=== PATIENT | male | born 1945 | race Caucasian/White ===

== ENCOUNTER 2016-11-07 13:54 | Inpatient (IN) | payer OTHER ==
[~2016-11-07] VITALS: Ht 175.3 cm; Wt 75.9 kg
[2016-11-07] MEDS ORDERED: SOD CHLORIDE 0.9% 500 ML IV STA (22:04)
[2016-11-07] MEDS ORDERED: morphine 2 MG INJ IV STA (22:04)
[2016-11-07] MEDS ORDERED: ONDANSETRON 4 MG INJ IV STA (22:04)
[2016-11-07] MEDS ORDERED: LANT3I SC (22:25)
[2016-11-07] MEDS ORDERED: NOVMIX SC (22:26)
[2016-11-07] MEDS ORDERED: ENAL20TA PO (22:27)
[2016-11-07] MEDS ORDERED: MONT10TA24 PO (22:27)
[2016-11-07] MEDS ORDERED: HYD25 PO (22:28)
[2016-11-07] MEDS ORDERED: ASPI-664 PO (22:28)
[2016-11-07] MEDS ORDERED: METF1000 PO (22:29)
[2016-11-07] MEDS ORDERED: SIMV20TA PO (22:29)
[2016-11-07 22:36] LABS: ADD SCAN DIFF NO
[2016-11-07 22:37] LABS: BASOPHIL # 0.1 10^3/ul (0.0-0.1); BASOPHILS % 0.4 % (0.0-2.0); EOSINOPHILS # 0.1 10^3/ul (0.0-0.5); EOSINOPHILS % 0.7 % (0.0-7.0); HEMATOCRIT 50.1 % (42.0-52.0); HEMOGLOBIN 17.2 g/dl (14.0-18.0); LYMPHOCYTES # 2.2 10^3/ul (0.8-2.9); LYMPHOCYTES % 17.1 % (15.0-51.0); MEAN CORPUSCULAR HEMOGLOBIN 29.7 pg (29.0-33.0); MEAN CORPUSCULAR HGB CONC 34.3 g/dl (32.0-37.0); MEAN CORPUSCULAR VOLUME 86.5 fl (82.0-101.0); MEAN PLATELET VOLUME 10.4 fl (7.4-10.4); MONOCYTE # 0.8 10^3/ul (0.3-0.9); MONOCYTES % 6.2 % (0.0-11.0); NEUTROPHIL # 9.6 10^3/ul (1.6-7.5); NEUTROPHILS % 75.2 % (39.0-77.0); PLATELET COUNT 262 10^3/UL (140-415); RED BLOOD COUNT 5.79 10^6/ul (4.70-6.10); RED CELL DISTRIBUTION WIDTH 12.9 % (11.5-14.5); WHITE BLOOD COUNT 12.8 10^3/ul (4.8-10.8)
[2016-11-07 22:44] LABS: ADD UMIC YES; URINE BILIRUBIN (Dip) 1+ (NEGATIVE); URINE BLOOD (Dip) TRACE (NEGATIVE); URINE COLOR YELLOW (YELLOW); URINE GLUCOSE (Dip) >=1000 % (NEGATIVE); URINE KETONES (Dip) 40 (NEGATIVE); URINE LEUKOCYTE ESTERASE (Dip) NEGATIVE (NEGATIVE); URINE NITRITE (Dip) NEGATIVE (NEGATIVE); URINE TOTAL PROTEIN (Dip) TRACE (NEGATIVE); URINE UROBILINOGEN (Dip) 1.0 E.U./dL (0.1-1.0)
[2016-11-07 22:47] LABS: CHLORIDE 95 mmol/L (97-110); SODIUM 139 mmol/L (135-144)
[2016-11-07 22:48] LABS: POTASSIUM 3.3 mmol/L (3.5-5.1)
[2016-11-07 22:50] LABS: ALANINE AMINOTRANSFERASE 156 IU/L (13-69); ALBUMIN/GLOBULIN RATIO 1.08; ALKALINE PHOSPHATASE 258 IU/L (42-121); ANION GAP 20 (8-16); ASPARTATE AMINO TRANSFERASE 63 IU/L (15-46); BILIRUBIN,INDIRECT 0.9 mg/dl (0-1.1); BILIRUBIN,TOTAL 0.9 mg/dl (0.2-1.3); BLOOD UREA NITROGEN 29 mg/dl (7-20); CARBON DIOXIDE 27 mmol/L (21-31); CREATININE 1.15 mg/dl (0.61-1.24); GLUCOSE 242 mg/dl (70-220); TOTAL PROTEIN 7.7 g/dl (6.1-8.1)
[2016-11-07 22:51] LABS: CALCIUM 9.4 mg/dl (8.4-10.2)
--- NOTE | 2016-11-07 22:52 | RADRPT ---
PROCEDURE: XR Chest. CLINICAL INDICATION: Abdominal pain. TECHNIQUE: Single frontal view of the chest was obtained COMPARISON: None FINDINGS: Cardiomegaly. Mild discoid atelectasis at the right lung base. Mild atelectasis versus airspace di sease at the left lung base. Likely changes of centrolobular emphysema. There is no pleural effusion or pneumothorax. IMPRESSION: 1. Mild discoid atelectasis at the right lung base. 2. Mild atelectasis versus airspace disease at the left lung base. RPTAT: [facility] Physician Sin Date Time Electronically viewed and signed by Physician Sin on 11/07/2016 22:52 RS/
[2016-11-07 23:04] LABS: TROPONIN-I < 0.012 ng/ml (0.00-0.12)
[2016-11-07 23:07] LABS: ICTOTEST NEGATIVE (NEGATIVE)
[2016-11-07 23:08] LABS: BACTERIA,URINE RARE; MUCUS,URINE FEW; SQUAMOUS EPITHELIAL CELL,UR RARE; URINE RBCS 0-2 /HPF (0)
--- NOTE | 2016-11-07 23:25 | RADRPT ---
PROCEDURE: CT ABDOMEN/PELVIS WITHOUT CONTRAST CLINICAL INDICATION: 71-year-old male with abdominal pain. TECHNIQUE: The study was performed utilizing a [employer]ed VCT 64-slice CT scanner. Direct axia l sections were obtained through the abdomen and pelvis without the use of intravenous contrast mate rial. Sagittal and coronal reformations were obtained. One or more of the following dose reduction t echniques were utilized: automated exposure control, adjustment of the mA and/or kV according to pat ient's size or use of iterative reconstruction technique. The images were reviewed on a PACS workst [employer]. CTD/vol = 12.7 mGy; Total Exam DLP = 693.8 mGy-cm. COMPARISON: None. FINDINGS: There is minimal pericardial effusion. There is mild bibasilar subsegmental atelectasis and/or scar ring. There is no evidence for significant pleural effusion. The liver has a normal size and contou r. There is diffuse decreased density throughout the liver consistent with fatty infiltration witho ut focal areas of abnormal density. No intrahepatic nor extrahepatic biliary ductal dilatation is se en. The gallbladder is not visualized consistent with prior cholecystectomy. The pancreatic head and body appears to be edematous with multiple small calcifications within it as well as mild peripancr eatic infiltration. This is suggestive of an acute pancreatitis superimposed on chronic pancreatitis . The distal pancreatic duct appears to be diffusely dilated measuring up to 7 mm within the distal body and tail region. The spleen is identified and has a normal size without abnormal density. The adrenal glands are unremarkable. There is a punctate nonobstructing right lower pole renal kunal calculus. There are punctate nonobstructing left upper and lower pole renal calculi. Mild prominen ce of the renal pelves are present bilaterally without evidence for ji obstructive uropathy. Ther e is a left upper pole renal cyst measuring approximately 1.5 x 1.5 x 1.5 cm. There is a left mid r enal cortical cyst measuring approximately 1.5 x 1.5 x 2.1 cm. The urinary bladder contains urine. There is flaccidity of the ventral abdominal wall and evidence for prior surgery. There are mildly dilated loops of small bowel with some adherent to the ventral abdominal wall but without evidence f or transition point. This may represent an ileus. The appendix is not visualized however there is no periappendiceal inflammatory changes. The prostate is not enlarged however there are multiple sm all calcifications within it. There is no significant pelvic free fluid. The aortoiliac vessels are mildly calcified but without aneurysmal dilatation. Degenerative changes are present within the spin e. IMPRESSION: 1. Mild bibasilar subsegmental atelectasis and/or scarring. 2. Diffuse fatty infiltration of the liver. 3. Status post cholecystectomy. 4. Diffusely edematous heterogeneous pancreatic head and body with diffuse calcification and mild p eripancreatic infiltration suggestive of acute pancreatitis superimposed on chronic pancreatitis. N oted is dilated distal pancreatic duct measuring up to 7 mm. 5. Punctate nonobstructing bilateral renal calculi. 6. Left renal cysts. 7. Prior abdominal surgery with flaccidity of the ventral abdominal wall. 8. Mildly dilated loops of small bowel without evidence for gross bowel obstruction. This may repr esent an ileus. 9. Vascular calcifications. 10. Degenerative changes within the spine. .Romaine Lauren MD, MD Date Time Electronically viewed and signed by .Romaine Lauren MD, on 11/07/2016 23:25 .M/
--- NOTE | 2016-11-08 01:06 | ERA ---
ER Documentation Chief Complaint Date/Time DATE: 11/08/16 TIME: 01:05 Chief Complaint abd pain with vomiting x 5 days HPI This is a 71-year-old male with abdominal pain and vomiting for the past 5 days. Vomiting been nonbilious nonbloody. 4-5 episodes per day. Abdominal pain is diffuse in location and seems to localize in the epigastric region. No fevers no chills. No other current complaints. No sick contacts. ROS All systems reviewed and are negative except as per history of present illness. Medications Home Meds Reported Medications Metformin Hcl* (Metformin Hcl*) 1,000 Mg Tablet, 1000 MG PO WITH BREAKFAST DINNE , #60 TAB 11/07/16 Simvastatin* (Zocor*) 20 Mg Tablet, 20 MG PO DAILY, #30 TAB 11/07/16 Aspirin* (Aspirin* EC) 81 Mg Tablet.dr, 81 MG PO DAILY, TAB 11/07/16 Hydrochlorothiazide* (Hydrochlorothiazide*) 25 Mg Tab, 25 MG PO DAILY, #30 TAB 11/07/16 Enalapril Maleate* (Enalapril Maleate*) 20 Mg Tablet, 20 MG PO DAILY, TAB 11/07/16 Montelukast Sodium* (Montelukast Sodium*) 10 Mg Tablet, 10 MG PO DAILY, #30 TAB 11/07/16 Insulin Aspart (Novolog Mix (70/30)) 100 Units/Ml Soln, 30 UNITS SC WITH BREAKFAST DINNE, EA 11/07/16 Insulin Glargine* (Lantus*) 100 Unit/Ml Soln, 35 UNIT SC QHS, #1 VIAL 11/07/16 Allergies Allergies: Coded Allergies: No Known Allergy (Unverified , 11/07/16) PMhx/Soc Hx Alcohol Use: Yes Hx Substance Use: No Hx Tobacco Use: No Smoking Status: Never smoker Physical Exam Vitals Vital Signs Date Time Temp Pulse Resp B/P Pulse Ox O2 Delivery O2 Flow Rate FiO2 11/07/16 14:00 99.5 105 18 178/89 97 Physical Exam Const: [] Head: Atraumatic Eyes: Normal Conjunctiva ENT: Normal External Ears, Nose and Mouth. Neck: Full range of motion..~ No meningismus. Resp: Clear to auscultation bilaterally Cardio: Regular rate and rhythm, no murmurs Abd: Soft, non tender, non distended. Normal bowel sounds Skin: No petechiae or rashes Back: No midline or flank tenderness Ext: No cyanosis, or edema Neur: Awake and alert Psych: Normal Mood and Affect Result Diagram: 11/07/16222911/07/162229 Results 24 hrs Laboratory Tests Test 11/07/16 22:25 11/07/16 22:30 Urine Color YELLOW Urine Clarity CLEAR Urine pH 6.0 Urine Specific Java 1.020 Urine Ketones 40 Urine Nitrite NEGATIVE Urine Bilirubin 1+ Urine Ictotest NEGATIVE Urine Urobilinogen 1.0 E.U./dL Urine Leukocyte Esterase NEGATIVE Urine Microscopic RBC 0-2/HPF Urine Microscopic WBC NONE SEEN/HPF Urine Squamous Epithelial Cells RARE Urine Bacteria RARE Urine Mucus FEW Urine Hemoglobin TRACE Urine Glucose >=1000% Urine Total Protein TRACE White Blood Count 12.810^3/ul Red Blood Count 5.7910^6/ul Hemoglobin 17.2g/dl Hematocrit 50.1% Mean Corpuscular Volume 86.5fl Mean Corpuscular Hemoglobin 29.7pg Mean Corpuscular Hemoglobin Concent 34.3g/dl Red Cell Distribution Width 12.9% Platelet Count 23429^3/UL Mean Platelet Volume 10.4fl Neutrophils % 75.2% Lymphocytes % 17.1% Monocytes % 6.2% Eosinophils % 0.7% Basophils % 0.4% Nucleated Red Blood Cells % 0.0/100WBC Neutrophils # 9.610^3/ul Lymphocytes # 2.210^3/ul Monocytes # 0.810^3/ul Eosinophils # 0.110^3/ul Basophils # 0.110^3/ul Nucleated Red Blood Cells # 0.010^3/ul Sodium Level 139mmol/L Potassium Level 3.3mmol/L Chloride Level 95mmol/L Carbon Dioxide Level 27mmol/L Anion Gap 20 Blood Urea Nitrogen 29mg/dl Creatinine 1.15mg/dl Glucose Level 242mg/dl Calcium Level 9.4mg/dl Total Bilirubin 0.9mg/dl Direct Bilirubin 0.00mg/dl Indirect Bilirubin 0.9mg/dl Aspartate Amino Transf (AST/SGOT) 63IU/L Alanine Aminotransferase (ALT/SGPT) 156IU/L Alkaline Phosphatase 258IU/L Troponin I < 0.012ng/ml Total Protein 7.7g/dl Albumin 4.0g/dl Globulin 3.70g/dl Albumin/Globulin Ratio 1.08 Lipase 73U/L Current Medications Medications (Trade) Dose Ordered Sig/Jyoti Route PRN Reason Start Time Stop Time Status Last Admin Dose Admin Sodium Chloride (NS) 500 ml @ 500 mls/hr Q1H STAT IV 11/07/16 22:04 11/07/16 23:03 DC 11/07/16 22:23 Morphine Sulfate (morphine) 2 mg ONCE STAT IV 11/07/16 22:04 11/07/16 22:06 DC 11/07/16 22:23 Ondansetron HCl (Zofran Inj) 4 mg ONCE STAT IV 11/07/16 22:04 11/07/16 22:06 DC 11/07/16 22:23 Procedures/MDM EKG: Rate/Rhythm: Normal Sinus Rhythm QRS, ST, T-waves: No changes consistent w/ acute ischemia Impression: No evidence of ischemia or arrhythmia Chest X-ray 1V Interpreted by me: Soft Tissue: No acute abnormalities Bones: No acute abnormalities Mediastinum/Cardiac Silhouette/Lungs: [No acute abnormalities] Medical decision-makin-year-old male with vomiting. CT shows acute on chronic pancreatitis. Patient will be admitted to Dr. Tello. Fluid hydration started here in the ER. Departure Diagnosis: Primary Impression: Abdominal pain Qualified Code: R10.84 - Generalized abdominal pain Additional Impression: Pancreatitis Qualified Code: K85.90 - Acute pancreatitis, unspecified complication status, unspecified pancreatitis type Condition: Serious STEFANI VILLARREAL Nov 08, 2016 01:06
[2016-11-08 03:35] VITALS: Ht 175.3 cm; Wt 75.9 kg
[2016-11-08 03:59] VITALS: BP 157/88; PULSE 18; PULSE 82; RESP 18
[2016-11-08] MEDS ORDERED: ONDANSETRON 4 MG INJ IV PRN (06:00)
[2016-11-08] MEDS ORDERED: ACETAMINOPHEN 325 MG TAB PO PRN (06:00)
[2016-11-08] MEDS: DEXTROSE 5%-0.9% NACL 1,000 ML IV SCH ×2 (06:23→17:45)
[2016-11-08] MEDS: PANTOPRAZOLE 40 MG INJ IV SCH (06:23)
[2016-11-08 07:27] VITALS: BP 136/74; RESP 20
[2016-11-08] MEDS ORDERED: GLUCOSE GEL 15 GRAM TUBE PO PRN ×2 (09:00)
[2016-11-08] MEDS ORDERED: GLUCAGON 1 MG INJ IM PRN (09:00)
[2016-11-08] MEDS ORDERED: DEXTROSE 50% 50 ML SYRINGE IV PRN ×2 (09:00)
[2016-11-08] MEDS ORDERED: GLUCOSE GEL 15 GRAM TUBE BUCCAL PRN (09:00)
[2016-11-08] MEDS: ENALAPRIL 20 MG TAB PO SCH (10:40)
[2016-11-08] MEDS: MONTELUKAST 10 MG TAB PO SCH (10:40)
[2016-11-08] MEDS: INSULIN ASPART [NOVOLOG] 3 ML PEN SC SCH ×3 (11:40→21:03)
[2016-11-08] MEDS: ACCU-CHEK XX SCH ×2 (12:03→17:34)
[2016-11-08] MEDS ORDERED: POTASSIUM CHLORIDE 250 ML IVPB ONE (18:30)
[2016-11-08 19:56] VITALS: BP 156/88; RESP 18
[2016-11-08] MEDS: INSULIN GLARGINE [LANtus] 3 ML PEN SC SCH (20:58)
--- NOTE | 2016-11-08 21:04 | QN ---
Documentation Comment [id number] MARIA EUGENIA LEONARD MD Nov 08, 2016 21:04
--- NOTE | 2016-11-08 21:09 | CONS ---
DATE OF ADMISSION: 11/08/2016 DATE OF CONSULTATION: TYPE OF CONSULTATION: Gastroenterology. REFERRING PHYSICIAN: Dr. Craig Leonard. Dear Dr. Leonard: HISTORY OF PRESENT ILLNESS: Thank you for asking me to evaluate the patient who is a pleasant 71-ye ar-old gentleman with no history of alcoholism or lipid abnormality, comes to the hospital complaini ng of abdominal pain confined to the epigastric and umbilical area. Nonradiating in nature, associa radha nausea and vomiting of 5 days duration. 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 I do not have any records. This was done a few y ears ago. No GI bleeding, no fever, no chills. The pain has improved dramatically now. The GI con sult was called in for pancreatitis, though the lipase was normal. The patient's CAT scan revealed acute and chronic pancreatitis with calcification and dilatation of the upstream pancreatic duct by 7 mm. No dilatation of the bile duct was seen. PAST SURGICAL HISTORY: The patient is status post cholecystectomy. REVIEW OF SYSTEMS: Otherwise negative. MEDICATIONS: All reviewed. He is on: 1. Metformin. 2. Simvastatin. 3. Hydrochlorothiazide. 4. Enalapril. 5. Insulin. ALLERGIES: NONE. PAST MEDICAL HISTORY: History of alcohol abuse: As per the ER records, it says yes. per the kenyatta wong, no. History of substance abuse: No. Tobacco: No smoking. PHYSICAL EXAMINATION: GENERAL: Well-built, nourished, not in distress. VITAL SIGNS: Stable. HEENT: Unremarkable. NECK: Supple. No thyromegaly, no lymphadenopathy. CARDIOVASCULAR: No murmur, gallop, or click. LUNGS: Clear. ABDOMEN: Soft. Midline surgical scar seen. There is also small ventral hernia, nontender. EXTREMITIES: No edema. CENTRAL NERVOUS SYSTEM: Grossly within normal limits. LABORATORY DATA: Lipase was 73. LFTs all abnormal. Alkaline phosphatase 250, SGOT 16, SGPT of 56. Total bilirubin is within normal limits. Creatinine is 1.15. Hemoglobin A1c is high, 9.8. Chest x-ray was negative except for a mild atelectasis. IMPRESSION: 1. Pancreatitis. 2. Dilated pancreatic duct. 3. Abnormal liver function tests. 4. Fatty liver. 5. Hypertension. 6. Diabetes mellitus. PLAN: 1. At this point, is to keep the patient n.p.o. until the pain subsides. 2. Narcotics for pain management. 3. IV hydration with ringer Lactated 125 to 150 mL per hour. 4. We will get MRCP done to evaluate the pancreatic duct. 5. I would stop hydrochlorothiazide for the time being, which is also known to produce pancreatitis . 6. I will follow the patient closely. Dictated By: CHRIS HERNANDEZ/AMINA Conf#: [id number] DID#: [id number] CC: CHRIS HARDY MD; CRAIG LEONARD MD;*EndCC*
[2016-11-08] MEDS: morphine 4 MG/ML VIAL IV PRN (21:10)
--- NOTE | 2016-11-08 21:51 | HP ---
DATE OF ADMISSION: 11/08/2016 HISTORY OF PRESENT ILLNESS: Joseph Santa is a 71-year-old male who was admitted with abdominal pain with history of pancreatitis. The patient has history of hypertension, diabetes mellitus, history o f necrotizing pancreatitis in the past and surgery, per patient, presented with abdominal pain. The patient's vital signs: Blood pressure 157/88. The patient's laboratory data done shows sodium 130 , potassium 3.3. The patient's glucose 248. The patient's AST 63, ALT 156, alkaline phosphatase 25 8. Lipase 73. PAST MEDICAL HISTORY: Positive for hypertension, diabetes mellitus, pancreatitis, dyslipidemia. ALLERGY HISTORY: NEGATIVE. FAMILY HISTORY: Negative. SOCIAL HISTORY: Negative. MEDICATIONS: 1. Aspirin. 2. Enalapril. 3. Hydrochlorothiazide. 4. Insulin Lantus. 5. Metformin. 6. Singulair. 7. Simvastatin. REVIEW OF SYSTEMS: HEENT: Unremarkable. RESPIRATORY: Unremarkable. CARDIOVASCULAR: Unremarkable. ABDOMEN: No nausea, vomiting. No hematemesis or melena. EXTREMITIES: Unremarkable. GENITOURINARY: Unremarkable. MUSCULOSKELETAL: Unremarkable. PHYSICAL EXAMINATION: GENERAL: The patient is awake and alert. VITAL SIGNS: Pulse 80, blood pressure 156/80. HEAD: Atraumatic, normocephalic. EYES: Pupils equal, reactive to light. NECK: Supple. No JVD. LUNGS: Clear. CARDIOVASCULAR: S1, S2 normal. ABDOMEN: Soft. There is some tenderness noted in the abdomen. EXTREMITIES: There is no cyanosis, clubbing, or edema. CENTRAL NERVOUS SYSTEM: The patient is awake, alert. No focal deficit. LABORATORY DATA: As mentioned above. IMAGING: The patient had a chest x-ray done, shows mild discoid atelectasis, mild atelectasis versu s airspace disease. The patient has a CT abdomen and pelvis shows mild bibasilar subsegmental atele ctasis or scarring, diffuse fatty infiltration of the liver, status post cholecystectomy, diffuse __ __ pancreatic head and body with diffuse calcification and mild peripancreatic duct infiltration ___ _ due acute pancreatitis superimposed on chronic, the patient has punctate nonobstructing bilateral renal calculi, left renal cyst. ____ abdominal surgery, mildly dilated loops of small bowel without evidence for gross bowel obstruction, vascular calcification, degenerative changes within the spine . IMPRESSION: 1. The patient has pancreatitis. 2. Abnormal liver function tests. 3. Hypokalemia. 4. The patient has diabetes mellitus. 5. Hypertension. 6. Electrolyte imbalance. 7. History of, per patient, cholecystectomy. PLAN: At this point is to keep this patient on clear liquid diet, potassium supplementation, IV flu id, pain medication, sliding scale. Currently, patient is on IV fluid. Potassium chloride. The pa tient is on Accu-Cheks. The patient is on Tylenol. The patient is on enalapril, Glucagon, insulin, morphine, Zofran, Protonix. The patient will have laboratory data checked in the morning. GI cons ultation from Dr. Whaley has been called. Dictated By: MARIA EUGENIA LEONARD MD BS/NTS Conf#: [id number] DID#: [id number]
[2016-11-09] MEDS: ACCU-CHEK XX SCH ×4 (02:25→17:24)
[2016-11-09] MEDS: morphine 4 MG/ML VIAL IV PRN (02:25)
[2016-11-09 05:11] LABS: ADD SCAN DIFF NO
[2016-11-09 05:19] LABS: BASOPHILS % 0.3 % (0.0-2.0); EOSINOPHILS # 0.1 10^3/ul (0.0-0.5); EOSINOPHILS % 1.2 % (0.0-7.0); HEMATOCRIT 44.9 % (42.0-52.0); HEMOGLOBIN 14.7 g/dl (14.0-18.0); LYMPHOCYTES # 1.8 10^3/ul (0.8-2.9); LYMPHOCYTES % 17.7 % (15.0-51.0); MEAN CORPUSCULAR HEMOGLOBIN 28.8 pg (29.0-33.0); MEAN CORPUSCULAR HGB CONC 32.7 g/dl (32.0-37.0); MEAN CORPUSCULAR VOLUME 87.9 fl (82.0-101.0); MEAN PLATELET VOLUME 10.7 fl (7.4-10.4); MONOCYTE # 0.7 10^3/ul (0.3-0.9); MONOCYTES % 6.9 % (0.0-11.0); NEUTROPHIL # 7.3 10^3/ul (1.6-7.5); NEUTROPHILS % 73.6 % (39.0-77.0); PLATELET COUNT 213 10^3/UL (140-415); RED BLOOD COUNT 5.11 10^6/ul (4.70-6.10); WHITE BLOOD COUNT 9.9 10^3/ul (4.8-10.8)
[2016-11-09 05:24] LABS: CREATININE 1.07 mg/dl (0.61-1.24)
[2016-11-09 05:25] LABS: CALCIUM 8.2 mg/dl (8.4-10.2)
[2016-11-09] MEDS: PANTOPRAZOLE 40 MG INJ IV SCH (05:52)
--- NOTE | 2016-11-09 06:13 | RADRPT ---
PROCEDURE: MR Abdomen. CLINICAL INDICATION: Pancreatitis. Evaluate for choledocholithiasis. TECHNIQUE: Multiplanar multi sequence imaging of the abdomen without contrast. Single shock, T2, a nd MRCP sequences. 3-D MIP reconstructions. COMPARISON: CT from 11/07 FINDINGS: MRI Abdomen: The liver is enlarged, measuring 18.[address] suggested hepatic steatosis. No T1-weighted imaging was obtained on today's study. There is mild intrahepatic biliary duct prominence but the common bile duct is normal in caliber, measuring 4 mm. No definite choledocholithiasis. The pancre atic duct is normal in caliber at in the neck, head, and proximal body measuring 3 mm. The pancreati c duct in the mid body of the pancreas is poorly seen and the pancreas is ill-defined in this region . The pancreatic duct in the tail is significantly dilated, measuring up to 6 mm in diameter. Calc ifications were not seen in the tail of the pancreas on recent CT. It is difficult to exclude an un derlying pancreatic mass on this noncontrast study. No definite focal liver lesions are seen. CT showed pancreatic calcifications consistent with chronic pancreatitis. The pancreatic head is sligh tly enlarged and heterogeneous but T2-weighted images show relatively little edema of the pancreas itself. No definite peripancreatic fluid collection. There is edema and slight fluid lateral and p osterior to the duodenum. Bilateral renal pelvocaliectasis and left renal cysts. The adrenals are unremarkable in appearance. Eventration and thinning of the anterior abdominal wall is seen. IMPRESSION: Limited noncontrast study. Mild intrahepatic ductal dilatation but normal caliber common bile duct and no definite choledocholithiasis. No evidence for pancreas divisum. Changes of chronic pancreat itis but cough of the pancreatic duct at the junction of the body and tail with dilated pancreatic d uct in the tail of the pancreas. MRI with and without contrast is suggested to exclude mass. Enlarg ement and heterogeneity of the pancreatic head may all be due to chronic pancreatitis but can be simba luated with pre and post contrast MRI as well. Slight edema and fluid about the duodenum. RPTAT: HLBE Mindy Christiansen, Physician Date Time Electronically viewed and signed by Mindy Christiansen, Physician on 11/09/2016 06:13 LE/
[2016-11-09 07:26] VITALS: BP 136/65; RESP 20
[2016-11-09] MEDS: MONTELUKAST 10 MG TAB PO SCH (08:38)
[2016-11-09] MEDS: ENALAPRIL 20 MG TAB PO SCH (08:38)
[2016-11-09] MEDS: DEXTROSE 5%-0.9% NACL 1,000 ML IV SCH ×2 (08:40→17:48)
[2016-11-09] MEDS: INSULIN ASPART [NOVOLOG] 3 ML PEN SC SCH ×5 (08:44→21:42)
--- NOTE | 2016-11-09 19:14 | CONS ---
Date/Time of Note Date/Time of Note DATE: 11/09/16 TIME: 19:13 Assessment/Plan Assessment/Plan Additional Assessment/Plan IMPRESSION: 1. Pancreatitis. 2. Dilated pancreatic duct. 3. Abnormal liver function tests. 4. Fatty liver. 5. Hypertension. 6. Diabetes mellitus. Plan Good diet and advance to low-fat diet as tolerated by the patient Creon on a regular basis If pain is persistent then patient will need definitely ERCP to rule out stricture between the body and the tail of the pancreas. CA 199 and CEA level Consultation Date/Type/Reason Admit Date/Time Nov 08, 2016 at 00:42 Initial Consult Date 24 HR Interval Summary Free Text/Dictation Pain is minimal, no nausea no vomiting Constitutional: improved, no complaints Exam/Review of Systems Vital Signs Vitals Vital Signs Date Time Temp Pulse Resp B/P Pulse Ox O2 Delivery O2 Flow Rate FiO2 11/09/16 07:26 98.0 77 20 136/65 96 11/08/16 03:59 Room Air Intake and Output 11/08/16 11/08/16 11/09/16 15:00 23:00 07:00 Intake Total 900 ml 250 ml Output Total 650 ml Balance 250 ml 250 ml Exam Constitutional: alert, oriented, well developed Psych: nl mood/affect, no complaints Head: atraumatic, normocephalic Eyes: EOMI, PERRL, nl conjunctiva, nl lids, nl sclera ENMT: nl external ears & nose, nl lips & teeth, nl nasal mucosa & septum Neck: non-tender, supple Respiratory: clear to auscultation, normal air movement Cardiovascular: nl pulses, regular rate and rhythm Gastrointestinal: nl liver, spleen, non-tender, soft Musculoskeletal: nl extremities to inspection, nl gait and stance Extremities: normal pulses Neurological: RADIOLOGY SUPERVISOR II-XII intact, nl mental status, nl speech, nl strength Skin: nl turgor, No rash or lesions Lymph: nl lymph nodes Results Result Diagram: 11/09/16 0410 11/09/16 0416 Results 24 hrs Laboratory Tests Test 11/08/16 20:54 11/09/16 02:20 11/09/16 04:10 11/09/16 04:16 Bedside Glucose 234 H 221 H White Blood Count 9.9 # Red Blood Count 5.11 Hemoglobin 14.7 Hematocrit 44.9 Mean Corpuscular Volume 87.9 Mean Corpuscular Hemoglobin 28.8 L Mean Corpuscular Hemoglobin Concent 32.7 Red Cell Distribution Width 13.0 Platelet Count 213 Mean Platelet Volume 10.7 H Neutrophils % 73.6 Lymphocytes % 17.7 Monocytes % 6.9 Eosinophils % 1.2 Basophils % 0.3 Nucleated Red Blood Cells % 0.0 Neutrophils # 7.3 Lymphocytes # 1.8 Monocytes # 0.7 Eosinophils # 0.1 Basophils # 0.0 Nucleated Red Blood Cells # 0.0 Sodium Level 140 Potassium Level 4.0 Chloride Level 104 Carbon Dioxide Level 27 Anion Gap 13 # Blood Urea Nitrogen 26 H Creatinine 1.07 Glucose Level 227 H Calcium Level 8.2 L Amylase Level 34 Lipase 38 Test 11/09/16 08:36 11/09/16 12:28 11/09/16 17:20 Bedside Glucose 224 H 280 H 244 H Medications Medications Current Medications Dextrose/Sodium Chloride (D5-NS) 1,000 ml @ 75 mls/hr [id number] IV Last administered on 11/09/16 17:48; Admin Dose 75 MLS/HR; Start 11/08/16 at 06:00 Pantoprazole (Protonix Iv) 40 mg DAILY@06 IV Last administered on 11/09/16 05: 52; Admin Dose 40 MG; Start 11/08/16 at 06:00 Acetaminophen (Tylenol Tab) 650 mg Q6H PRN PO PAIN AND OR ELEVATED TEMP; Start 11/08/16 at 06:00 Ondansetron HCl (Zofran Inj) 4 mg Q4H PRN IV NAUSEA AND/OR VOMITING; Start 11/08 at 06:00 Morphine Sulfate (morphine) 3 mg Q4H PRN IV MODERATE TO SEVERE PAIN Last administered on 11/09/16 02:25; Admin Dose 3 MG; Start 11/08/16 at 06:00 Enalapril Maleate (Vasotec) 20 mg DAILY PO Last administered on 11/09/16 08:38 ; Admin Dose 20 MG; Start 11/08/16 at 09:00 Montelukast Sodium (Singulair) 10 mg DAILY PO Last administered on 11/09/16 08: 38; Admin Dose 10 MG; Start 11/08/16 at 09:00 Insulin Glargine (Lantus) 10 unit HS SC Last administered on 11/08/16 20:58; Admin Dose 10 UNIT; Start 11/08/16 at 21:00 Diagnostic Test (Pha) (Accu-Chek) 1 ea XX Last administered on 11/09/16 02: 25; Admin Dose 1 EA; Start 11/09/16 at 02:00 Miscellaneous Information 1 ea NOTE XX ; Start 11/08/16 at 09:00 Glucose (Glutose) 15 gm Q15M PRN PO DECREASED GLUCOSE; Start 11/08/16 at 09:00 Glucose (Glutose) 22.5 gm Q15M PRN PO DECREASED GLUCOSE; Start 11/08/16 at 09:00 Dextrose (D50w Syringe) 25 ml Q15M PRN IV DECREASED GLUCOSE; Start 11/08/16 at 09:00 Dextrose (D50w Syringe) 50 ml Q15M PRN IV DECREASED GLUCOSE; Start 11/08/16 at 09:00 Glucagon (Glucagen) 1 mg Q15M PRN IM DECREASED GLUCOSE; Start 11/08/16 at 09:00 Glucose (Glutose) 15 gm Q15M PRN BUCCAL DECREASED GLUCOSE; Start 11/08/16 at 09: 00 Diagnostic Test (Pha) (Accu-Chek) 1 ea XX ; Start 11/10/16 at 02:00 CHRIS HARDY MD Nov 09, 2016 19:14
--- NOTE | 2016-11-09 19:49 | PN ---
Date/Time of Note Date/Time of Note DATE: 11/09/16 TIME: 19:48 Assessment/Plan VTE Prophylaxis VTE Prophylaxis Intervention: other Lines/Catheters IV C[facility]ter Type (from [facility]): Peripheral IV Assessment/Plan Chief Complaint/Hosp Course IMPRESSION: 1. The patient has pancreatitis. 2. Abnormal liver function tests. 3. Hypokalemia. 4. The patient has diabetes mellitus. 5. Hypertension. 6. Electrolyte imbalance. 7. History of, per patient, cholecystectomy. plan per gi Problems: Subjective 24 Hr Interval Summary Cardiovascular: no complaints Gastrointestinal: pain (better) Exam/Review of Systems Vital Signs Vitals Vital Signs Date Time Temp Pulse Resp B/P Pulse Ox O2 Delivery O2 Flow Rate FiO2 11/09/16 07:26 98.0 77 20 136/65 96 11/08/16 03:59 Room Air Intake and Output 11/08/16 11/08/16 11/09/16 15:00 23:00 07:00 Intake Total 900 ml 250 ml Output Total 650 ml Balance 250 ml 250 ml Exam Respiratory: clear to auscultation Cardiovascular: regular rate and rhythm Gastrointestinal: bowel sounds (+), soft Results Result Diagram: 11/09/16 0410 11/09/16 0416 Results 24 hrs Laboratory Tests Test 11/08/16 20:54 11/09/16 02:20 11/09/16 04:10 11/09/16 04:16 Bedside Glucose 234 H 221 H White Blood Count 9.9 # Red Blood Count 5.11 Hemoglobin 14.7 Hematocrit 44.9 Mean Corpuscular Volume 87.9 Mean Corpuscular Hemoglobin 28.8 L Mean Corpuscular Hemoglobin Concent 32.7 Red Cell Distribution Width 13.0 Platelet Count 213 Mean Platelet Volume 10.7 H Neutrophils % 73.6 Lymphocytes % 17.7 Monocytes % 6.9 Eosinophils % 1.2 Basophils % 0.3 Nucleated Red Blood Cells % 0.0 Neutrophils # 7.3 Lymphocytes # 1.8 Monocytes # 0.7 Eosinophils # 0.1 Basophils # 0.0 Nucleated Red Blood Cells # 0.0 Sodium Level 140 Potassium Level 4.0 Chloride Level 104 Carbon Dioxide Level 27 Anion Gap 13 # Blood Urea Nitrogen 26 H Creatinine 1.07 Glucose Level 227 H Calcium Level 8.2 L Amylase Level 34 Lipase 38 Test 11/09/16 08:36 11/09/16 12:28 11/09/16 17:20 Bedside Glucose 224 H 280 H 244 H Medications Medications Current Medications Dextrose/Sodium Chloride (D5-NS) 1,000 ml @ 75 mls/hr [id number] IV Last administered on 11/09/16 17:48; Admin Dose 75 MLS/HR; Start 11/08/16 at 06:00 Pantoprazole (Protonix Iv) 40 mg DAILY@06 IV Last administered on 11/09/16 05: 52; Admin Dose 40 MG; Start 11/08/16 at 06:00 Acetaminophen (Tylenol Tab) 650 mg Q6H PRN PO PAIN AND OR ELEVATED TEMP; Start 11/08/16 at 06:00 Ondansetron HCl (Zofran Inj) 4 mg Q4H PRN IV NAUSEA AND/OR VOMITING; Start 11/08 at 06:00 Morphine Sulfate (morphine) 3 mg Q4H PRN IV MODERATE TO SEVERE PAIN Last administered on 11/09/16 02:25; Admin Dose 3 MG; Start 11/08/16 at 06:00 Enalapril Maleate (Vasotec) 20 mg DAILY PO Last administered on 11/09/16 08:38 ; Admin Dose 20 MG; Start 11/08/16 at 09:00 Montelukast Sodium (Singulair) 10 mg DAILY PO Last administered on 11/09/16 08: 38; Admin Dose 10 MG; Start 11/08/16 at 09:00 Insulin Glargine (Lantus) 10 unit HS SC Last administered on 11/08/16 20:58; Admin Dose 10 UNIT; Start 11/08/16 at 21:00 Diagnostic Test (Pha) (Accu-Chek) 1 ea 02 XX Last administered on 11/09/16 02: 25; Admin Dose 1 EA; Start 11/09/16 at 02:00 Miscellaneous Information 1 ea NOTE XX ; Start 11/08/16 at 09:00 Glucose (Glutose) 15 gm Q15M PRN PO DECREASED GLUCOSE; Start 11/08/16 at 09:00 Glucose (Glutose) 22.5 gm Q15M PRN PO DECREASED GLUCOSE; Start 11/08/16 at 09:00 Dextrose (D50w Syringe) 25 ml Q15M PRN IV DECREASED GLUCOSE; Start 11/08/16 at 09:00 Dextrose (D50w Syringe) 50 ml Q15M PRN IV DECREASED GLUCOSE; Start 11/08/16 at 09:00 Glucagon (Glucagen) 1 mg Q15M PRN IM DECREASED GLUCOSE; Start 11/08/16 at 09:00 Glucose (Glutose) 15 gm Q15M PRN BUCCAL DECREASED GLUCOSE; Start 11/08/16 at 09: 00 Diagnostic Test (Pha) (Accu-Chek) 1 ea 02 XX ; Start 11/10/16 at 02:00 MARIA EUGENIA LEONARD MD Nov 09, 2016 19:49
[2016-11-09 20:01] VITALS: BP 170/80; RESP 20
[2016-11-09] MEDS: INSULIN GLARGINE [LANtus] 3 ML PEN SC SCH (21:40)
[2016-11-09] MEDS: SOD CHLORIDE 0.9% 1,000 ML IV SCH (21:48)
[2016-11-09] MEDS: hydrALAzine 20 MG INJ IV PRN (22:02)
[2016-11-10] VITALS: BP 153/72; PULSE 80; RESP 17
[2016-11-10] MEDS: ACCU-CHEK XX SCH ×5 (02:00→17:25)
[2016-11-10] MEDS: PANTOPRAZOLE 40 MG INJ IV SCH (06:44)
[2016-11-10 07:26] VITALS: BP 156/81; RESP 20
[2016-11-10 07:26] LABS: CARCINOEMBRYONIC ANTIGEN 1.1 ng/ml (0.0-5.0)
[2016-11-10] MEDS: ENALAPRIL 20 MG TAB PO SCH (08:58)
[2016-11-10] MEDS: MONTELUKAST 10 MG TAB PO SCH (08:58)
[2016-11-10] MEDS: INSULIN ASPART [NOVOLOG] 3 ML PEN SC SCH ×5 (09:02→22:11)
[2016-11-10 19:37] VITALS: BP 151/80; RESP 18
--- NOTE | 2016-11-10 20:39 | PN ---
Date/Time of Note Date/Time of Note DATE: 11/10/16 TIME: 20:38 Assessment/Plan VTE Prophylaxis VTE Prophylaxis Intervention: other Lines/Catheters IV Catheter Type (from Nrs): Saline Lock Assessment/Plan Chief Complaint/Hosp Course IMPRESSION: 1. The patient has pancreatitis. 2. Abnormal liver function tests. 3. Hypokalemia. 4. The patient has diabetes mellitus. 5. Hypertension. 6. Electrolyte imbalance. 7. History of, per patient, cholecystectomy. 8 elevated ca 19/9 plan per gi Problems: Subjective 24 Hr Interval Summary Subjective hx not possible: other (abd better) Exam/Review of Systems Vital Signs Vitals Vital Signs Date Time Temp Pulse Resp B/P Pulse Ox O2 Delivery O2 Flow Rate FiO2 11/10/16 19:37 98.1 76 18 151/80 98 11/10/16 00:00 Room Air Intake and Output 11/09/16 11/09/16 11/10/16 15:00 23:00 07:00 Intake Total 1300 ml 1075 ml 50 ml Output Total 300 ml 900 ml 850 ml Balance 1000 ml 175 ml -800 ml Exam Neck: supple Respiratory: clear to auscultation Cardiovascular: regular rate and rhythm Gastrointestinal: bowel sounds (+), soft Results Result Diagram: 11/09/16 0410 11/09/16 0416 Results 24 hrs Laboratory Tests Test 11/09/16 21:36 11/10/16 02:27 11/10/16 04:25 11/10/16 08:04 Bedside Glucose 234 H 183 210 Carcinoembryonic Antigen 1.1 CA 19-9 Antigen 195.0 H Test 11/10/16 12:15 11/10/16 17:42 Bedside Glucose 279 H 321 H Medications Medications Current Medications Pantoprazole (Protonix Iv) 40 mg DAILY@06 IV Last administered on 11/10/16 06: 44; Admin Dose 40 MG; Start 11/08/16 at 06:00 Acetaminophen (Tylenol Tab) 650 mg Q6H PRN PO PAIN AND OR ELEVATED TEMP; Start 11/08/16 at 06:00 Ondansetron HCl (Zofran Inj) 4 mg Q4H PRN IV NAUSEA AND/OR VOMITING; Start 11/08 at 06:00 Morphine Sulfate (morphine) 3 mg Q4H PRN IV MODERATE TO SEVERE PAIN Last administered on 11/09/16 02:25; Admin Dose 3 MG; Start 11/08/16 at 06:00 Enalapril Maleate (Vasotec) 20 mg DAILY PO Last administered on 11/10/16 08:58 ; Admin Dose 20 MG; Start 11/08/16 at 09:00 Montelukast Sodium (Singulair) 10 mg DAILY PO Last administered on 11/10/16 08: 58; Admin Dose 10 MG; Start 11/08/16 at 09:00 Miscellaneous Information 1 ea NOTE XX ; Start 11/08/16 at 09:00 Glucose (Glutose) 15 gm Q15M PRN PO DECREASED GLUCOSE; Start 11/08/16 at 09:00 Glucose (Glutose) 22.5 gm Q15M PRN PO DECREASED GLUCOSE; Start 11/08/16 at 09:00 Dextrose (D50w Syringe) 25 ml Q15M PRN IV DECREASED GLUCOSE; Start 11/08/16 at 09:00 Dextrose (D50w Syringe) 50 ml Q15M PRN IV DECREASED GLUCOSE; Start 11/08/16 at 09:00 Glucagon (Glucagen) 1 mg Q15M PRN IM DECREASED GLUCOSE; Start 11/08/16 at 09:00 Glucose (Glutose) 15 gm Q15M PRN BUCCAL DECREASED GLUCOSE; Start 11/08/16 at 09: 00 Diagnostic Test (Pha) (Accu-Chek) 1 ea 02 XX ; Start 11/10/16 at 02:00 Hydralazine HCl 10 mg 10 mg Q6H PRN IV ELEVATED BLOOD PRESSURE Last administered on 11/09/16 22:02; Admin Dose 10 MG; Start 11/09/16 at 20:40 Sodium Chloride (NS) 1,000 ml @ 30 mls/hr Q24H IV Last administered on 21:48; Admin Dose 30 MLS/HR; Start 11/09/16 at 20:40 Insulin Glargine (Lantus) 18 unit HS SC ; Start 11/10/16 at 21:00 MARIA EUGENIA LEONARD MD Nov 10, 2016 20:39
[2016-11-10] MEDS: SOD CHLORIDE 0.9% 1,000 ML IV SCH (20:40)
[2016-11-10] MEDS: INSULIN GLARGINE [LANtus] 3 ML PEN SC SCH (22:10)
[2016-11-11] MEDS: ACCU-CHEK XX SCH ×4 (02:00→17:24)
[2016-11-11] MEDS: SOD CHLORIDE 0.9% 1,000 ML IV SCH (02:26)
[2016-11-11 05:40] LABS: ADD SCAN DIFF NO
[2016-11-11 05:49] LABS: BASOPHILS % 0.4 % (0.0-2.0); EOSINOPHILS # 0.2 10^3/ul (0.0-0.5); EOSINOPHILS % 2.2 % (0.0-7.0); HEMATOCRIT 40.2 % (42.0-52.0); HEMOGLOBIN 13.8 g/dl (14.0-18.0); LYMPHOCYTES # 1.8 10^3/ul (0.8-2.9); LYMPHOCYTES % 23.6 % (15.0-51.0); MEAN CORPUSCULAR HEMOGLOBIN 29.4 pg (29.0-33.0); MEAN CORPUSCULAR HGB CONC 34.3 g/dl (32.0-37.0); MEAN CORPUSCULAR VOLUME 85.7 fl (82.0-101.0); MEAN PLATELET VOLUME 10.6 fl (7.4-10.4); MONOCYTE # 0.6 10^3/ul (0.3-0.9); MONOCYTES % 7.7 % (0.0-11.0); NEUTROPHILS % 65.6 % (39.0-77.0); PLATELET COUNT 228 10^3/UL (140-415); RED BLOOD COUNT 4.69 10^6/ul (4.70-6.10); RED CELL DISTRIBUTION WIDTH 12.3 % (11.5-14.5); WHITE BLOOD COUNT 7.6 10^3/ul (4.8-10.8)
[2016-11-11] MEDS: PANTOPRAZOLE 40 MG INJ IV SCH (06:07)
[2016-11-11 07:01] LABS: ALBUMIN 2.8 g/dl (3.3-4.9); ALBUMIN/GLOBULIN RATIO 0.96; BILIRUBIN,INDIRECT 0.6 mg/dl (0-1.1); BILIRUBIN,TOTAL 0.6 mg/dl (0.2-1.3); CALCIUM 7.7 mg/dl (8.4-10.2); CREATININE 0.98 mg/dl (0.61-1.24); POTASSIUM 3.6 mmol/L (3.5-5.1); TOTAL PROTEIN 5.7 g/dl (6.1-8.1)
[2016-11-11] MEDS: INSULIN ASPART [NOVOLOG] 3 ML PEN SC SCH ×7 (07:50→21:28)
[2016-11-11] MEDS: ENALAPRIL 20 MG TAB PO SCH (08:32)
[2016-11-11 08:40] VITALS: BP 125/66; RESP 18
[2016-11-11] MEDS: MONTELUKAST 10 MG TAB PO SCH (09:00)
--- NOTE | 2016-11-11 18:07 | CONS ---
Date/Time of Note Date/Time of Note DATE: 11/11/16 TIME: 18:05 Assessment/Plan Assessment/Plan Additional Assessment/Plan Assessment/Plan Assessment/Plan Additional Assessment/Plan IMPRESSION: 1. Pancreatitis. 2. Dilated pancreatic duct. 3. Abnormal liver function tests. 4. Fatty liver. 5. Hypertension. 6. Diabetes mellitus. 7. Ventral hernia Plan Good diet and advance to low-fat diet as tolerated by the patient Creon on a regular basis If pain is persistent then patient will need definitely ERCP to rule out stricture between the body and the tail of the pancreas CA 199 elevated 198 Patient was supposed to have ERCP today but due to conflicting schedules with the OR and C-arm and the GI lab we could not schedule it. Patient is scheduled for ERCP on Monday Consultation Date/Type/Reason Admit Date/Time Nov 08, 2016 at 00:42 24 HR Interval Summary Free Text/Dictation Pain better but persistent No nausea no vomiting Exam/Review of Systems Vital Signs Vitals Vital Signs Date Time Temp Pulse Resp B/P Pulse Ox O2 Delivery O2 Flow Rate FiO2 11/11/16 08:40 98.3 67 18 125/66 97 11/10/16 00:00 Room Air Intake and Output 11/10/16 11/10/16 11/11/16 15:00 23:00 07:00 Intake Total 1280 ml 200 ml Output Total 500 ml Balance 1280 ml -300 ml Exam Constitutional: alert, oriented, well developed Psych: nl mood/affect, no complaints Head: atraumatic, normocephalic Eyes: EOMI, PERRL, nl conjunctiva, nl lids, nl sclera ENMT: nl external ears & nose, nl lips & teeth, nl nasal mucosa & septum Neck: non-tender, supple Respiratory: clear to auscultation, normal air movement Cardiovascular: nl pulses, regular rate and rhythm Gastrointestinal: nl liver, spleen, non-tender, soft Musculoskeletal: nl extremities to inspection, nl gait and stance Extremities: normal pulses Neurological: [employer] II-XII intact, nl mental status, nl speech, nl strength Skin: nl turgor, No rash or lesions Lymph: nl lymph nodes Results Result Diagram: 11/11/16 0505 11/11/16 0443 Results 24 hrs Laboratory Tests Test 11/10/16 22:06 11/11/16 02:24 11/11/16 04:43 11/11/16 05:05 Bedside Glucose 263 H 239 H Sodium Level 135 Potassium Level 3.6 Chloride Level 107 Carbon Dioxide Level 23 Anion Gap 9 Blood Urea Nitrogen 20 Creatinine 0.98 Glucose Level 200 Calcium Level 7.7 L Total Bilirubin 0.6 Direct Bilirubin 0.00 Indirect Bilirubin 0.6 Aspartate Amino Transf (AST/SGOT) 23 Alanine Aminotransferase (ALT/SGPT) 52 Alkaline Phosphatase 149 H Total Protein 5.7 L Albumin 2.8 L Globulin 2.90 Albumin/Globulin Ratio 0.96 White Blood Count 7.6 # Red Blood Count 4.69 L Hemoglobin 13.8 L Hematocrit 40.2 L Mean Corpuscular Volume 85.7 Mean Corpuscular Hemoglobin 29.4 Mean Corpuscular Hemoglobin Concent 34.3 Red Cell Distribution Width 12.3 Platelet Count 228 Mean Platelet Volume 10.6 H Neutrophils % 65.6 Lymphocytes % 23.6 Monocytes % 7.7 Eosinophils % 2.2 Basophils % 0.4 Nucleated Red Blood Cells % 0.0 Neutrophils # 5.0 Lymphocytes # 1.8 Monocytes # 0.6 Eosinophils # 0.2 Basophils # 0.0 Nucleated Red Blood Cells # 0.0 Test 11/11/16 07:46 11/11/16 12:13 11/11/16 17:45 Bedside Glucose 217 150 135 Medications Medications Current Medications Pantoprazole (Protonix Iv) 40 mg DAILY@06 IV Last administered on 11/11/16 06: 07; Admin Dose 40 MG; Start 11/08/16 at 06:00 Acetaminophen (Tylenol Tab) 650 mg Q6H PRN PO PAIN AND OR ELEVATED TEMP; Start 11/08/16 at 06:00 Ondansetron HCl (Zofran Inj) 4 mg Q4H PRN IV NAUSEA AND/OR VOMITING; Start 11/08 at 06:00 Morphine Sulfate (morphine) 3 mg Q4H PRN IV MODERATE TO SEVERE PAIN Last administered on 11/09/16 02:25; Admin Dose 3 MG; Start 11/08/16 at 06:00 Enalapril Maleate (Vasotec) 20 mg DAILY PO Last administered on 11/11/16 08:32 ; Admin Dose 20 MG; Start 11/08/16 at 09:00 Montelukast Sodium (Singulair) 10 mg DAILY PO Last administered on 11/10/16 08: 58; Admin Dose 10 MG; Start 11/08/16 at 09:00 Miscellaneous Information 1 ea NOTE XX ; Start 11/08/16 at 09:00 Glucose (Glutose) 15 gm Q15M PRN PO DECREASED GLUCOSE; Start 11/08/16 at 09:00 Glucose (Glutose) 22.5 gm Q15M PRN PO DECREASED GLUCOSE; Start 11/08/16 at 09:00 Dextrose (D50w Syringe) 25 ml Q15M PRN IV DECREASED GLUCOSE; Start 11/08/16 at 09:00 Dextrose (D50w Syringe) 50 ml Q15M PRN IV DECREASED GLUCOSE; Start 11/08/16 at 09:00 Glucagon (Glucagen) 1 mg Q15M PRN IM DECREASED GLUCOSE; Start 11/08/16 at 09:00 Glucose (Glutose) 15 gm Q15M PRN BUCCAL DECREASED GLUCOSE; Start 11/08/16 at 09: 00 Diagnostic Test (Pha) (Accu-Chek) 1 ea 02 XX ; Start 11/10/16 at 02:00 Hydralazine HCl 10 mg 10 mg Q6H PRN IV ELEVATED BLOOD PRESSURE Last administered on 11/09/16 22:02; Admin Dose 10 MG; Start 11/09/16 at 20:40 Sodium Chloride (NS) 1,000 ml @ 30 mls/hr Q24H IV Last administered on 02:26; Admin Dose 30 MLS/HR; Start 11/09/16 at 20:40 Insulin Glargine (Lantus) 18 unit HS SC Last administered on 11/10/16 22:10; Admin Dose 18 UNIT; Start 11/10/16 at 21:00 CHRIS HARDY MD Nov 11, 2016 18:07
[2016-11-11 19:00] VITALS: BP 158/81; RESP 18
[2016-11-11] MEDS: INSULIN GLARGINE [LANtus] 3 ML PEN SC SCH (21:29)
--- NOTE | 2016-11-12 00:19 | PN ---
Date/Time of Note Date/Time of Note DATE: 11/12/16 TIME: 00:18 Assessment/Plan VTE Prophylaxis VTE Prophylaxis Intervention: other Lines/Catheters IV C[facility] Type (from [facility]): Peripheral IV Assessment/Plan Chief Complaint/Hosp Course IMPRESSION: 1. The patient has pancreatitis. 2. Abnormal liver function tests. 3. Hypokalemia. 4. The patient has diabetes mellitus. 5. Hypertension. 6. Electrolyte imbalance. 7. History of, per patient, cholecystectomy. 8 elevated ca 19/9 plan per gi ercp per gi Problems: Subjective 24 Hr Interval Summary Gastrointestinal: no complaints Genitourinary: no complaints Exam/Review of Systems Vital Signs Vitals Vital Signs Date Time Temp Pulse Resp B/P Pulse Ox O2 Delivery O2 Flow Rate FiO2 11/11/16 19:00 97.6 71 18 158/81 98 11/10/16 00:00 Room Air Intake and Output 11/11/16 11/11/16 11/12/16 15:00 23:00 07:00 Output Total 750 ml Balance -750 ml Exam ENMT: nl external ears & nose Neck: supple Respiratory: clear to auscultation Gastrointestinal: soft Results Result Diagram: 11/11/16 0505 11/11/16 0443 Results 24 hrs Laboratory Tests Test 11/11/16 02:24 11/11/16 04:43 11/11/16 05:05 11/11/16 07:46 Bedside Glucose 239 H 217 Sodium Level 135 Potassium Level 3.6 Chloride Level 107 Carbon Dioxide Level 23 Anion Gap 9 Blood Urea Nitrogen 20 Creatinine 0.98 Glucose Level 200 Calcium Level 7.7 L Total Bilirubin 0.6 Direct Bilirubin 0.00 Indirect Bilirubin 0.6 Aspartate Amino Transf (AST/SGOT) 23 Alanine Aminotransferase (ALT/SGPT) 52 Alkaline Phosphatase 149 H Total Protein 5.7 L Albumin 2.8 L Globulin 2.90 Albumin/Globulin Ratio 0.96 White Blood Count 7.6 # Red Blood Count 4.69 L Hemoglobin 13.8 L Hematocrit 40.2 L Mean Corpuscular Volume 85.7 Mean Corpuscular Hemoglobin 29.4 Mean Corpuscular Hemoglobin Concent 34.3 Red Cell Distribution Width 12.3 Platelet Count 228 Mean Platelet Volume 10.6 H Neutrophils % 65.6 Lymphocytes % 23.6 Monocytes % 7.7 Eosinophils % 2.2 Basophils % 0.4 Nucleated Red Blood Cells % 0.0 Neutrophils # 5.0 Lymphocytes # 1.8 Monocytes # 0.6 Eosinophils # 0.2 Basophils # 0.0 Nucleated Red Blood Cells # 0.0 Test 11/11/16 12:13 11/11/16 17:45 11/11/16 21:23 Bedside Glucose 150 135 247 H Medications Medications Current Medications Pantoprazole (Protonix Iv) 40 mg DAILY@06 IV Last administered on 11/11/16 06: 07; Admin Dose 40 MG; Start 11/08/16 at 06:00 Acetaminophen (Tylenol Tab) 650 mg Q6H PRN PO PAIN AND OR ELEVATED TEMP; Start 11/08/16 at 06:00 Ondansetron HCl (Zofran Inj) 4 mg Q4H PRN IV NAUSEA AND/OR VOMITING; Start 11/08 at 06:00 Morphine Sulfate (morphine) 3 mg Q4H PRN IV MODERATE TO SEVERE PAIN Last administered on 11/09/16 02:25; Admin Dose 3 MG; Start 11/08/16 at 06:00 Enalapril Maleate (Vasotec) 20 mg DAILY PO Last administered on 11/11/16 08:32 ; Admin Dose 20 MG; Start 11/08/16 at 09:00 Montelukast Sodium (Singulair) 10 mg DAILY PO Last administered on 11/10/16 08: 58; Admin Dose 10 MG; Start 11/08/16 at 09:00 Miscellaneous Information 1 ea NOTE XX ; Start 11/08/16 at 09:00 Glucose (Glutose) 15 gm Q15M PRN PO DECREASED GLUCOSE; Start 11/08/16 at 09:00 Glucose (Glutose) 22.5 gm Q15M PRN PO DECREASED GLUCOSE; Start 11/08/16 at 09:00 Dextrose (D50w Syringe) 25 ml Q15M PRN IV DECREASED GLUCOSE; Start 11/08/16 at 09:00 Dextrose (D50w Syringe) 50 ml Q15M PRN IV DECREASED GLUCOSE; Start 11/08/16 at 09:00 Glucagon (Glucagen) 1 mg Q15M PRN IM DECREASED GLUCOSE; Start 11/08/16 at 09:00 Glucose (Glutose) 15 gm Q15M PRN BUCCAL DECREASED GLUCOSE; Start 11/08/16 at 09: 00 Diagnostic Test (Pha) (Accu-Chek) 1 ea 02 XX ; Start 11/10/16 at 02:00 Hydralazine HCl 10 mg 10 mg Q6H PRN IV ELEVATED BLOOD PRESSURE Last administered on 11/09/16 22:02; Admin Dose 10 MG; Start 11/09/16 at 20:40 Sodium Chloride (NS) 1,000 ml @ 30 mls/hr Q24H IV Last administered on 02:26; Admin Dose 30 MLS/HR; Start 11/09/16 at 20:40 Insulin Glargine (Lantus) 18 unit HS SC Last administered on 11/11/16 21:29; Admin Dose 18 UNIT; Start 11/10/16 at 21:00 MARIA EUGENIA LEONARD MD Nov 12, 2016 00:19
[2016-11-12] MEDS: ACCU-CHEK XX SCH ×4 (02:00→17:25)
[2016-11-12] MEDS: PANTOPRAZOLE 40 MG INJ IV SCH (06:12)
[2016-11-12 08:15] VITALS: BP 153/82; RESP 20
[2016-11-12] MEDS: MONTELUKAST 10 MG TAB PO SCH (08:55)
[2016-11-12] MEDS: ENALAPRIL 20 MG TAB PO SCH (08:55)
[2016-11-12] MEDS: INSULIN ASPART [NOVOLOG] 3 ML PEN SC SCH ×7 (08:58→20:44)
--- NOTE | 2016-11-12 10:34 | CONS ---
Date/Time of Note Date/Time of Note DATE: 11/12/16 TIME: 10:32 Assessment/Plan Assessment/Plan Chief Complaint/Hosp Course IMPRESSION: 1. Pancreatitis. 2. Dilated pancreatic duct. 3. Abnormal liver function tests. 4. Fatty liver. 5. Hypertension. 6. Diabetes mellitus. 7. Ventral hernia Plan Continue low-fat diet as tolerated by the patient Creon on a regular basis Patient was supposed to have ERCP today but due to conflicting schedules with the OR and C-arm and the GI lab we could not schedule it. Patient is scheduled for ERCP on Monday Continue other supportive care Problems: Consultation Date/Type/Reason Admit Date/Time Nov 08, 2016 at 00:42 Type of Consultation: GI 24 HR Interval Summary Free Text/Dictation No n/v, no abdominal pain Exam/Review of Systems Vital Signs Vitals Vital Signs Date Time Temp Pulse Resp B/P Pulse Ox O2 Delivery O2 Flow Rate FiO2 11/12/16 08:15 98.0 72 20 153/82 98 11/10/16 00:00 Room Air Intake and Output 11/11/16 11/11/16 11/12/16 15:00 23:00 07:00 Intake Total 720 ml Output Total 750 ml 500 ml Balance -750 ml 220 ml Exam Constitutional: alert, oriented, well developed Psych: nl mood/affect, no complaints Head: atraumatic, normocephalic Eyes: EOMI, nl conjunctiva, nl lids, nl sclera ENMT: mucosa pink and moist, nl external ears & nose, nl lips & teeth, nl nasal mucosa & septum Neck: non-tender, supple Respiratory: clear to auscultation, normal air movement Cardiovascular: nl pulses, regular rate and rhythm Gastrointestinal: bowel sounds, non-tender, soft Results Result Diagram: 11/11/16 0505 11/11/16 0443 Results 24 hrs Laboratory Tests Test 11/11/16 12:13 11/11/16 17:45 11/11/16 21:23 11/12/16 02:21 Bedside Glucose 150 135 247 H 236 H Test 11/12/16 07:59 Bedside Glucose 184 Medications Medications Current Medications Pantoprazole (Protonix Iv) 40 mg DAILY@06 IV Last administered on 11/12/16t 06: 12; Admin Dose 40 MG; Start 11/08/16 at 06:00 Acetaminophen (Tylenol Tab) 650 mg Q6H PRN PO PAIN AND OR ELEVATED TEMP; Start 11/08/16 at 06:00 Ondansetron HCl (Zofran Inj) 4 mg Q4H PRN IV NAUSEA AND/OR VOMITING; Start 11/08 at 06:00 Morphine Sulfate (morphine) 3 mg Q4H PRN IV MODERATE TO SEVERE PAIN Last administered on 11/09/16 02:25; Admin Dose 3 MG; Start 11/08/16 at 06:00 Enalapril Maleate (Vasotec) 20 mg DAILY PO Last administered on 11/12/16 08:55 ; Admin Dose 20 MG; Start 11/08/16 at 09:00 Montelukast Sodium (Singulair) 10 mg DAILY PO Last administered on 11/12/16 08: 55; Admin Dose 10 MG; Start 11/08/16 at 09:00 Miscellaneous Information 1 ea NOTE XX ; Start 11/08/16 at 09:00 Glucose (Glutose) 15 gm Q15M PRN PO DECREASED GLUCOSE; Start 11/08/16 at 09:00 Glucose (Glutose) 22.5 gm Q15M PRN PO DECREASED GLUCOSE; Start 11/08/16 at 09:00 Dextrose (D50w Syringe) 25 ml Q15M PRN IV DECREASED GLUCOSE; Start 11/08/16 at 09:00 Dextrose (D50w Syringe) 50 ml Q15M PRN IV DECREASED GLUCOSE; Start 11/08/16 at 09:00 Glucagon (Glucagen) 1 mg Q15M PRN IM DECREASED GLUCOSE; Start 11/08/16 at 09:00 Glucose (Glutose) 15 gm Q15M PRN BUCCAL DECREASED GLUCOSE; Start 11/08/16 at 09: 00 Diagnostic Test (Pha) (Accu-Chek) 1 ea 02 XX ; Start 11/10/16 at 02:00 Hydralazine HCl 10 mg 10 mg Q6H PRN IV ELEVATED BLOOD PRESSURE Last administered on 11/09/16 22:02; Admin Dose 10 MG; Start 11/09/16 at 20:40 Sodium Chloride (NS) 1,000 ml @ 30 mls/hr Q24H IV Last administered on 02:26; Admin Dose 30 MLS/HR; Start 11/09/16 at 20:40 Insulin Glargine (Lantus) 18 unit HS SC Last administered on 11/11/16t 21:29; Admin Dose 18 UNIT; Start 11/10/16 at 21:00 DALLIN DOUGLAS MD Nov 12, 2016 10:34
[2016-11-12] MEDS: INSULIN GLARGINE [LANtus] 3 ML PEN SC SCH (20:45)
[2016-11-12] MEDS: SOD CHLORIDE 0.9% 1,000 ML IV SCH (20:46)
[2016-11-12 21:10] VITALS: BP 172/86; RESP 20
[2016-11-12] MEDS: hydrALAzine 20 MG INJ IV PRN (21:32)
--- NOTE | 2016-11-12 22:09 | PN ---
Date/Time of Note Date/Time of Note DATE: 11/12/16 TIME: 22:08 Assessment/Plan VTE Prophylaxis VTE Prophylaxis Intervention: other Lines/Catheters IV Catheter Type (from Nrsg): Peripheral IV Assessment/Plan Chief Complaint/Hosp Course IMPRESSION: 1. The patient has pancreatitis. 2. Abnormal liver function tests. 3. Hypokalemia.better 4. The patient has diabetes mellitus. 5. Hypertension. 6. Electrolyte imbalance. 7. History of, per patient, cholecystectomy. 8 elevated ca 19/9 plan per gi ercp per gi on monday Problems: Subjective 24 Hr Interval Summary Cardiovascular: no complaints Gastrointestinal: no complaints Exam/Review of Systems Vital Signs Vitals Vital Signs Date Time Temp Pulse Resp B/P Pulse Ox O2 Delivery O2 Flow Rate FiO2 11/12/16 21:10 98.2 72 20 172/86 97 11/10/16 00:00 Room Air Intake and Output 11/11/16 11/11/16 11/12/16 15:00 23:00 07:00 Intake Total 300 ml 720 ml Output Total 750 ml 500 ml Balance -450 ml 220 ml Exam Respiratory: clear to auscultation Cardiovascular: regular rate and rhythm Gastrointestinal: bowel sounds (+), soft, No tender Musculoskeletal: nl extremities to inspection Extremities: normal pulses Results Result Diagram: 11/11/16 0505 11/11/16 0443 Results 24 hrs Laboratory Tests Test 11/12/16 02:21 11/12/16 07:59 11/12/16 11:53 11/12/16 17:23 Bedside Glucose 236 H 184 237 H 191 Test 11/12/16 20:29 Bedside Glucose 312 H Medications Medications Current Medications Pantoprazole (Protonix Iv) 40 mg DAILY@06 IV Last administered on 11/12/16 06: 12; Admin Dose 40 MG; Start 11/08/16 at 06:00 Acetaminophen (Tylenol Tab) 650 mg Q6H PRN PO PAIN AND OR ELEVATED TEMP; Start 11/08/16 at 06:00 Ondansetron HCl (Zofran Inj) 4 mg Q4H PRN IV NAUSEA AND/OR VOMITING; Start 11/08 at 06:00 Morphine Sulfate (morphine) 3 mg Q4H PRN IV MODERATE TO SEVERE PAIN Last administered on 11/09/16 02:25; Admin Dose 3 MG; Start 11/08/16 at 06:00 Enalapril Maleate (Vasotec) 20 mg DAILY PO Last administered on 11/12/16 08:55 ; Admin Dose 20 MG; Start 11/08/16 at 09:00 Montelukast Sodium (Singulair) 10 mg DAILY PO Last administered on 11/12/16 08: 55; Admin Dose 10 MG; Start 11/08/16 at 09:00 Miscellaneous Information 1 ea NOTE XX ; Start 11/08/16 at 09:00 Glucose (Glutose) 15 gm Q15M PRN PO DECREASED GLUCOSE; Start 11/08/16 at 09:00 Glucose (Glutose) 22.5 gm Q15M PRN PO DECREASED GLUCOSE; Start 11/08/16 at 09:00 Dextrose (D50w Syringe) 25 ml Q15M PRN IV DECREASED GLUCOSE; Start 11/08/16 at 09:00 Dextrose (D50w Syringe) 50 ml Q15M PRN IV DECREASED GLUCOSE; Start 11/08/16 at 09:00 Glucagon (Glucagen) 1 mg Q15M PRN IM DECREASED GLUCOSE; Start 11/08/16 at 09:00 Glucose (Glutose) 15 gm Q15M PRN BUCCAL DECREASED GLUCOSE; Start 11/08/16 at 09: 00 Diagnostic Test (Pha) (Accu-Chek) 1 ea 02 XX ; Start 11/10/16 at 02:00 Hydralazine HCl 10 mg 10 mg Q6H PRN IV ELEVATED BLOOD PRESSURE Last administered on 11/12/16 21:32; Admin Dose 10 MG; Start 11/09/16 at 20:40 Sodium Chloride (NS) 1,000 ml @ 30 mls/hr Q24H IV Last administered on 20:46; Admin Dose 30 MLS/HR; Start 11/09/16 at 20:40 Insulin Glargine (Lantus) 18 unit HS SC Last administered on 11/12/16 20:45; Admin Dose 18 UNIT; Start 11/10/16 at 21:00 MARIA EUGENIA LEONARD MD Nov 12, 2016 22:09
[2016-11-13 00:36] VITALS: BP 127/60; RESP 20
[2016-11-13] MEDS: ACCU-CHEK XX SCH ×4 (02:00→18:09)
[2016-11-13] MEDS: PANTOPRAZOLE 40 MG INJ IV SCH (05:26)
[2016-11-13 08:08] VITALS: BP 134/70; RESP 18
[2016-11-13] MEDS: MONTELUKAST 10 MG TAB PO SCH (08:59)
[2016-11-13] MEDS: ENALAPRIL 20 MG TAB PO SCH (09:00)
[2016-11-13] MEDS: INSULIN ASPART [NOVOLOG] 3 ML PEN SC SCH ×7 (09:02→20:43)
--- NOTE | 2016-11-13 10:34 | CONS ---
Date/Time of Note Date/Time of Note DATE: 11/13/16 TIME: 10:32 Assessment/Plan Assessment/Plan Chief Complaint/Hosp Course IMPRESSION: 1. Pancreatitis. 2. Dilated pancreatic duct. 3. Abnormal liver function tests. 4. Fatty liver. 5. Hypertension. 6. Diabetes mellitus. 7. Ventral hernia Plan NPO after midnight for ERCP tomorrow Creon on a regular basis Continue other supportive care Dr. Whaley to resume care tomorrow Problems: Consultation Date/Type/Reason Admit Date/Time Nov 08, 2016 at 00:42 Type of Consultation: GI 24 HR Interval Summary Free Text/Dictation mild RUQ pain, no n/v Exam/Review of Systems Vital Signs Vitals Vital Signs Date Time Temp Pulse Resp B/P Pulse Ox O2 Delivery O2 Flow Rate FiO2 11/13/16 08:08 97.8 87 18 134/70 96 11/10/16 00:00 Room Air Intake and Output 11/12/16 11/12/16 11/13/16 14:59 22:59 06:59 Intake Total 1340 ml 1210 ml Output Total 900 ml 1250 ml Balance 440 ml -40 ml Exam Constitutional: alert, oriented, well developed Psych: nl mood/affect, no complaints Head: atraumatic, normocephalic Eyes: EOMI, nl conjunctiva, nl lids, nl sclera ENMT: nl external ears & nose, nl lips & teeth, nl nasal mucosa & septum Neck: non-tender, supple Respiratory: clear to auscultation, normal air movement Cardiovascular: nl pulses, regular rate and rhythm Gastrointestinal: bowel sounds, soft, tender (mild RUQ, no R/G) Results Result Diagram: 11/11/16 0505 11/11/16 0443 Results 24 hrs Laboratory Tests Test 11/12/16 11:53 11/12/16 17:23 11/12/16 20:29 11/13/16 02:16 Bedside Glucose 237 H 191 312 H 227 H Test 11/13/16 08:08 Bedside Glucose 201 Medications Medications Current Medications Pantoprazole (Protonix Iv) 40 mg DAILY@06 IV Last administered on 11/13/16t 05: 26; Admin Dose 40 MG; Start 11/08/16 at 06:00 Acetaminophen (Tylenol Tab) 650 mg Q6H PRN PO PAIN AND OR ELEVATED TEMP; Start 11/08/16 at 06:00 Ondansetron HCl (Zofran Inj) 4 mg Q4H PRN IV NAUSEA AND/OR VOMITING; Start 11/08 at 06:00 Morphine Sulfate (morphine) 3 mg Q4H PRN IV MODERATE TO SEVERE PAIN Last administered on 11/09/16 02:25; Admin Dose 3 MG; Start 11/08/16 at 06:00 Enalapril Maleate (Vasotec) 20 mg DAILY PO Last administered on 11/13/16 09:00 ; Admin Dose 20 MG; Start 11/08/16 at 09:00 Montelukast Sodium (Singulair) 10 mg DAILY PO Last administered on 11/13/16 08: 59; Admin Dose 10 MG; Start 11/08/16 at 09:00 Miscellaneous Information 1 ea NOTE XX ; Start 11/08/16 at 09:00 Glucose (Glutose) 15 gm Q15M PRN PO DECREASED GLUCOSE; Start 11/08/16 at 09:00 Glucose (Glutose) 22.5 gm Q15M PRN PO DECREASED GLUCOSE; Start 11/08/16 at 09:00 Dextrose (D50w Syringe) 25 ml Q15M PRN IV DECREASED GLUCOSE; Start 11/08/16 at 09:00 Dextrose (D50w Syringe) 50 ml Q15M PRN IV DECREASED GLUCOSE; Start 11/08/16 at 09:00 Glucagon (Glucagen) 1 mg Q15M PRN IM DECREASED GLUCOSE; Start 11/08/16 at 09:00 Glucose (Glutose) 15 gm Q15M PRN BUCCAL DECREASED GLUCOSE; Start 11/08/16 at 09: 00 Diagnostic Test (Pha) (Accu-Chek) 1 ea 02 XX ; Start 11/10/16 at 02:00 Hydralazine HCl 10 mg 10 mg Q6H PRN IV ELEVATED BLOOD PRESSURE Last administered on 11/12/16 21:32; Admin Dose 10 MG; Start 11/09/16 at 20:40 Sodium Chloride (NS) 1,000 ml @ 30 mls/hr Q24H IV Last administered on 20:46; Admin Dose 30 MLS/HR; Start 11/09/16 at 20:40 Insulin Glargine (Lantus) 22 unit HS SC ; Start 11/13/16 at 21:00 DALLIN DOUGLAS MD Nov 13, 2016 10:34
[2016-11-13 19:45] VITALS: BP 130/73; RESP 18
[2016-11-13] MEDS: SOD CHLORIDE 0.9% 1,000 ML IV SCH (20:40)
[2016-11-13] MEDS: INSULIN GLARGINE [LANtus] 3 ML PEN SC SCH (20:42)
--- NOTE | 2016-11-13 22:38 | PN ---
Date/Time of Note Date/Time of Note DATE: 11/13/16 TIME: 22:37 Assessment/Plan VTE Prophylaxis VTE Prophylaxis Intervention: other Lines/Catheters IV Catheter Type (from Nrsg): Peripheral IV Assessment/Plan Chief Complaint/Hosp Course IMPRESSION: 1. The patient has pancreatitis. 2. Abnormal liver function tests. 3. Hypokalemia.better 4. The patient has diabetes mellitus. 5. Hypertension. 6. Electrolyte imbalance. 7. History of, per patient, cholecystectomy. 8 elevated ca /9 plan per gi ercp per gi on monday Problems: Subjective 24 Hr Interval Summary Cardiovascular: no complaints Gastrointestinal: no complaints Exam/Review of Systems Vital Signs Vitals Vital Signs Date Time Temp Pulse Resp B/P Pulse Ox O2 Delivery O2 Flow Rate FiO2 11/13/16 19:45 97.7 70 18 130/73 97 11/10/16 00:00 Room Air Intake and Output 11/12/16 11/12/16 11/13/16 15:00 23:00 07:00 Intake Total 1340 ml 1210 ml Output Total 900 ml 1250 ml Balance 440 ml -40 ml Exam Respiratory: clear to auscultation Cardiovascular: regular rate and rhythm Gastrointestinal: bowel sounds (+), soft Results Result Diagram: 11/11/16 0505 11/11/16 0443 Results 24 hrs Laboratory Tests Test 11/13/16 02:16 11/13/16 08:08 11/13/16 11:16 11/13/16 17:35 Bedside Glucose 227 H 201 350 H 122 Test 11/13/16 20:36 Bedside Glucose 269 H Medications Medications Current Medications Pantoprazole (Protonix Iv) 40 mg DAILY@06 IV Last administered on 11/13/16 05: 26; Admin Dose 40 MG; Start 11/08/16 at 06:00 Acetaminophen (Tylenol Tab) 650 mg Q6H PRN PO PAIN AND OR ELEVATED TEMP; Start 11/08/16 at 06:00 Ondansetron HCl (Zofran Inj) 4 mg Q4H PRN IV NAUSEA AND/OR VOMITING; Start 11/08 at 06:00 Morphine Sulfate (morphine) 3 mg Q4H PRN IV MODERATE TO SEVERE PAIN Last administered on 11/09/16 02:25; Admin Dose 3 MG; Start 11/08/16 at 06:00 Enalapril Maleate (Vasotec) 20 mg DAILY PO Last administered on 11/13/16 09:00 ; Admin Dose 20 MG; Start 11/08/16 at 09:00 Montelukast Sodium (Singulair) 10 mg DAILY PO Last administered on 11/13/16 08: 59; Admin Dose 10 MG; Start 11/08/16 at 09:00 Miscellaneous Information 1 ea NOTE XX ; Start 11/08/16 at 09:00 Glucose (Glutose) 15 gm Q15M PRN PO DECREASED GLUCOSE; Start 11/08/16 at 09:00 Glucose (Glutose) 22.5 gm Q15M PRN PO DECREASED GLUCOSE; Start 11/08/16 at 09:00 Dextrose (D50w Syringe) 25 ml Q15M PRN IV DECREASED GLUCOSE; Start 11/08/16 at 09:00 Dextrose (D50w Syringe) 50 ml Q15M PRN IV DECREASED GLUCOSE; Start 11/08/16 at 09:00 Glucagon (Glucagen) 1 mg Q15M PRN IM DECREASED GLUCOSE; Start 11/08/16 at 09:00 Glucose (Glutose) 15 gm Q15M PRN BUCCAL DECREASED GLUCOSE; Start 11/08/16 at 09: 00 Diagnostic Test (Pha) (Accu-Chek) 1 ea 02 XX ; Start 11/10/16 at 02:00 Hydralazine HCl 10 mg 10 mg Q6H PRN IV ELEVATED BLOOD PRESSURE Last administered on 11/12/16 21:32; Admin Dose 10 MG; Start 11/09/16 at 20:40 Sodium Chloride (NS) 1,000 ml @ 30 mls/hr Q24H IV Last administered on 20:40; Admin Dose 30 MLS/HR; Start 11/09/16 at 20:40 Insulin Glargine (Lantus) 22 unit HS SC Last administered on 11/13/16 20:42; Admin Dose 22 UNIT; Start 11/13/16 at 21:00 Indomethacin (Indocin Supp) 100 mg ONCE [place] ; Start 11/14/16 at 08:00; Stop 11/16 at 07:59 MARIA EUGENIA LEONARD MD Nov 13, 2016 22:38
[2016-11-14] VITALS (20 sets, daily range): BP systolic 116–178; BP diastolic 63–96; PULSE 72–116; RESP 14–26
[2016-11-14] MEDS: ACCU-CHEK XX SCH ×4 (01:30→17:20)
[2016-11-14] MEDS: PANTOPRAZOLE 40 MG INJ IV SCH (05:39)
[2016-11-14] MEDS: INSULIN ASPART [NOVOLOG] 3 ML PEN SC SCH ×7 (07:50→20:39)
[2016-11-14] MEDS: INDOMETHACIN 50 MG SUPP PR SCH (08:00)
[2016-11-14] MEDS: MONTELUKAST 10 MG TAB PO SCH (08:26)
[2016-11-14] MEDS: ENALAPRIL 20 MG TAB PO SCH (08:26)
[2016-11-14] MEDS ORDERED: SUCCINYLCHOLINE CHLORIDE 100 MG/5 ML SYG IV ONE (12:17)
[2016-11-14] MEDS ORDERED: LIDOCAINE 1% (MDV) 20 ML INJ ONE (12:17)
[2016-11-14] MEDS ORDERED: FENTAnyl 50 MCG/ML VIAL ONE (12:17)
[2016-11-14] MEDS ORDERED: MIDAZOLAM 1 MG/ML 2 ML INJ ONE (12:17)
[2016-11-14] MEDS ORDERED: PROPOFOL 20 ML ONE (12:17)
[2016-11-14] MEDS ORDERED: IOHEXOL 300MG/ML 30 ML BTL ONE (12:26)
--- NOTE | 2016-11-14 12:27 | HPN ---
Date/Time of Note Date/Time of Note DATE: 11/14/16 TIME: 12:27 Interval H&P Admission Note Pt. seen H&P reviewed: No system changes CHRIS HARDY MD Nov 14, 2016 12:27
[2016-11-14] MEDS ORDERED: CEFAZOLIN 1 GM INJ ONE (12:44)
[2016-11-14] MEDS ORDERED: FAMOTIDINE 20 MG INJ ONE (12:46)
[2016-11-14] MEDS ORDERED: DEXAMETHASONE 4 MG/ML 1 ML INJ ONE (12:46)
[2016-11-14] MEDS ORDERED: ONDANSETRON 4 MG INJ ONE (12:46)
[2016-11-14] MEDS ORDERED: PROCHLORPERAZINE 10 MG INJ IV PRN (13:30)
[2016-11-14] MEDS ORDERED: HYDROmorphONE (0.2 MG/ML) 10ML SYG IV PRN (13:30)
[2016-11-14] MEDS ORDERED: MEPERIDINE 25 MG INJ IV PRN (13:30)
[2016-11-14] MEDS ORDERED: hydrALAzine 20 MG INJ IV PRN (14:30)
[2016-11-14] MEDS ORDERED: EPHEDrine SULFATE 50 MG/5 ML SYG IV ONE (18:09)
[2016-11-14] MEDS ORDERED: SEVOFLURANE 15 MIN INH ONE (18:09)
[2016-11-14] MEDS: hydrALAzine 20 MG INJ IV PRN (18:32)
[2016-11-14] MEDS: SOD CHLORIDE 0.9% 1,000 ML IV SCH (20:27)
[2016-11-14] MEDS: INSULIN GLARGINE [LANtus] 3 ML PEN SC SCH (20:40)
--- NOTE | 2016-11-14 22:48 | PN ---
Date/Time of Note Date/Time of Note DATE: 11/14/16 TIME: 22:47 Assessment/Plan VTE Prophylaxis VTE Prophylaxis Intervention: other Lines/Catheters IV Catheter Type (from [facility]): Saline Lock Assessment/Plan Chief Complaint/Hosp Course IMPRESSION: 1. The patient has pancreatitis. 2. Abnormal liver function tests. 3. Hypokalemia.better 4. The patient has diabetes mellitus. 5. Hypertension. 6. Electrolyte imbalance. 7. History of, per patient, cholecystectomy. 8 elevated ca 19/9 plan per gi ercp and stent Problems: Subjective 24 Hr Interval Summary Subjective hx not possible: other (s/p ercp and stent) Exam/Review of Systems Vital Signs Vitals Vital Signs Date Time Temp Pulse Resp B/P Pulse Ox O2 Delivery O2 Flow Rate FiO2 11/14/16 19:48 97.8 90 18 116/64 99 Room Air Intake and Output 11/13/16 11/13/16 11/14/16 15:00 23:00 07:00 Intake Total 1160 ml 650 ml Balance 1160 ml 650 ml Exam Respiratory: clear to auscultation Cardiovascular: regular rate and rhythm Gastrointestinal: soft Musculoskeletal: nl extremities to inspection, nl gait and stance Extremities: normal pulses Results Result Diagram: 11/11/16 0505 11/11/16 0443 Results 24 hrs Laboratory Tests Test 11/14/16 01:27 11/14/16 07:43 11/14/16 11:49 11/14/16 14:24 Bedside Glucose 229 H 173 193 217 Test 11/14/16 16:32 11/14/16 20:23 Bedside Glucose 247 H 334 H Medications Medications Current Medications Pantoprazole (Protonix Iv) 40 mg DAILY@06 IV Last administered on 11/14/16 05: 39; Admin Dose 40 MG; Start 11/08/16 at 06:00 Acetaminophen (Tylenol Tab) 650 mg Q6H PRN PO PAIN AND OR ELEVATED TEMP; Start 11/08/16 at 06:00 Ondansetron HCl (Zofran Inj) 4 mg Q4H PRN IV NAUSEA AND/OR VOMITING; Start 11/08 at 06:00 Morphine Sulfate (morphine) 3 mg Q4H PRN IV MODERATE TO SEVERE PAIN Last administered on 11/09/16 02:25; Admin Dose 3 MG; Start 11/08/16 at 06:00 Enalapril Maleate (Vasotec) 20 mg DAILY PO Last administered on 11/13/16 09:00 ; Admin Dose 20 MG; Start 11/08/16 at 09:00 Montelukast Sodium (Singulair) 10 mg DAILY PO Last administered on 11/13/16 08: 59; Admin Dose 10 MG; Start 11/08/16 at 09:00 Miscellaneous Information 1 ea NOTE XX ; Start 11/08/16 at 09:00 Glucose (Glutose) 15 gm Q15M PRN PO DECREASED GLUCOSE; Start 11/08/16 at 09:00 Glucose (Glutose) 22.5 gm Q15M PRN PO DECREASED GLUCOSE; Start 11/08/16 at 09:00 Dextrose (D50w Syringe) 25 ml Q15M PRN IV DECREASED GLUCOSE; Start 11/08/16 at 09:00 Dextrose (D50w Syringe) 50 ml Q15M PRN IV DECREASED GLUCOSE; Start 11/08/16 at 09:00 Glucagon (Glucagen) 1 mg Q15M PRN IM DECREASED GLUCOSE; Start 11/08/16 at 09:00 Glucose (Glutose) 15 gm Q15M PRN BUCCAL DECREASED GLUCOSE; Start 11/08/16 at 09: 00 Diagnostic Test (Pha) (Accu-Chek) 1 ea 02 XX Last administered on 11/14/16 01: 30; Admin Dose 1 EA; Start 11/10/16 at 02:00 Hydralazine HCl 10 mg 10 mg Q6H PRN IV ELEVATED BLOOD PRESSURE Last administered on 11/14/16 18:32; Admin Dose 10 MG; Start 11/09/16 at 20:40 Sodium Chloride (NS) 1,000 ml @ 30 mls/hr Q24H IV Last administered on 20:40; Admin Dose 30 MLS/HR; Start 11/09/16 at 20:40 Insulin Glargine (Lantus) 22 unit HS SC Last administered on 11/14/16 20:40; Admin Dose 22 UNIT; Start 11/13/16 at 21:00 Indomethacin (Indocin Supp) 100 mg ONCE [place] ; Start 11/14/16 at 08:00; Stop 11/16 at 07:59 MARIA EUGENIA LEONARD MD Nov 14, 2016 22:48
--- NOTE | 2016-11-15 01:56 | GILP ---
DATE OF PROCEDURE: PROCEDURE: ERCP, sphincterotomy, placement of biliary and pancreatic stent. INDICATIONS: Elderly male undergoing this procedure for dilatation of the pancreatic duct, possible stricture in the mid and tail portion of the pancreas. Besides on a CAT scan, suspicion for malign chalino was raised and CA 19-9 came high to almost 200. The purpose of this procedure is to both evalu ate biliary and pancreatic duct and perform therapeutic endoscopy. The risk of the procedure, relat ed and unrelated complications, anesthetic risks, alternatives discussed and informed consent was ob tained. DESCRIPTION OF PROCEDURE: The patient was brought to the GI lab, sedated by the anesthesiologist. After optimal sedation, placed in a prone position. The patient was intubated. Indocin suppository was administered, was given Ancef 1 gram prior to the procedure. Scope was passed with much ease i nto the esophagus, advanced down into stomach and duodenum. Ampulla appeared much larger than the n ormal. It was very patulous. Selectively cannulated the pancreatic duct. We left a wire inside. The bile duct was selectively cannulated. There was questionable debris in the distal part of the d uct. Large sphincterotomy done and then it was swept with a balloon multiple times. The cholestero l debris came out. Stent was then deployed successfully, 10-Latvian 5 cm. After the deployment of t he stent, the other pancreatic guidewire came out spontaneously, so we passed a thin sphincterotome and the thin wire of 0.025. It would bend at the tail portion of the pancreatic duct. We injected dye. The pancreatic duct appeared there was secondary branch filling also, but that appeared mildly dilated, but I could not go all the way into the third part. Whatever dye was injecting was coming out through the ampulla, indicating that the tail part was maybe blocked completely and could not g o into the tail portion of the pancreas. So at this point we deployed a 5-Latvian 5 cm stent pigtail successfully. Excellent pancreatic drainage and also was established. IMPRESSION: 1. Ampullary stenosis. A large sphincterotomy done. 2. Cholesterol debris was removed. 3. Stent deployed, 10-Latvian 5 cm, successfully. 4. Pancreatic duct appeared mildly dilated in the body of the pancreas, but the tail could not be s een. It is possible there might be blockage of the body and tail of the pancreas. The dye would co me out through the ampulla instead of going into the tail. The guidewire also did not go all the wa y into the tail. Pictures were taken and the stent, 5-Latvian 5 cm, successfully deployed. PLAN: Monitor LFT. If the patient is asymptomatic, we will discharge and do EUS as an outpatient. Dictated By: CHRIS HERNANDEZ/AMINA Conf#: [id number] DID#: [id number] CC: CHRIS HARDY MD; MARIA EUGENIA LEONARD MD;*EndCC*
[2016-11-15] MEDS: ACCU-CHEK XX SCH ×3 (02:13→11:16)
[2016-11-15 05:06] LABS: ADD SCAN DIFF NO
[2016-11-15 05:10] LABS: BASOPHILS % 0.2 % (0.0-2.0); EOSINOPHILS % 0.1 % (0.0-7.0); HEMATOCRIT 44.8 % (42.0-52.0); HEMOGLOBIN 15.3 g/dl (14.0-18.0); LYMPHOCYTES # 1.4 10^3/ul (0.8-2.9); LYMPHOCYTES % 11.4 % (15.0-51.0); MEAN CORPUSCULAR HEMOGLOBIN 28.9 pg (29.0-33.0); MEAN CORPUSCULAR HGB CONC 34.2 g/dl (32.0-37.0); MEAN CORPUSCULAR VOLUME 84.7 fl (82.0-101.0); MEAN PLATELET VOLUME 10.3 fl (7.4-10.4); MONOCYTE # 0.6 10^3/ul (0.3-0.9); MONOCYTES % 4.6 % (0.0-11.0); NEUTROPHIL # 10.5 10^3/ul (1.6-7.5); NEUTROPHILS % 83.1 % (39.0-77.0); PLATELET COUNT 294 10^3/UL (140-415); RED BLOOD COUNT 5.29 10^6/ul (4.70-6.10); RED CELL DISTRIBUTION WIDTH 12.8 % (11.5-14.5); WHITE BLOOD COUNT 12.6 10^3/ul (4.8-10.8)
[2016-11-15 05:32] LABS: ALBUMIN 3.3 g/dl (3.3-4.9); ALBUMIN/GLOBULIN RATIO 1.06; BILIRUBIN,INDIRECT 0.4 mg/dl (0-1.1); BILIRUBIN,TOTAL 0.4 mg/dl (0.2-1.3); CALCIUM 8.5 mg/dl (8.4-10.2); CREATININE 0.99 mg/dl (0.61-1.24); POTASSIUM 4.4 mmol/L (3.5-5.1); TOTAL PROTEIN 6.4 g/dl (6.1-8.1)
[2016-11-15] MEDS: PANTOPRAZOLE 40 MG INJ IV SCH (05:39)
[2016-11-15 07:41] VITALS: BP 152/81; RESP 18
[2016-11-15] MEDS: INDOMETHACIN 50 MG SUPP PR SCH (08:00)
[2016-11-15] MEDS: MONTELUKAST 10 MG TAB PO SCH (08:58)
[2016-11-15] MEDS: ENALAPRIL 20 MG TAB PO SCH (08:58)
[2016-11-15] MEDS: INSULIN ASPART [NOVOLOG] 3 ML PEN SC SCH ×4 (09:01→12:36)
--- NOTE | 2016-11-15 17:06 | PDOCDIS ---
Discharge Instructions CONDITION Patient Condition: Stable HOME CARE INSTRUCTIONS: Diet Instructions: RegularSpecial Diet: Full liquid/ carb controlled ACTIVITY: Activity Restrictions: Slowly Increase Activity Rest between Activity Bathing Restrictions: Shower FOLLOW UP/APPOINTMENTS Appointments f/u own pcp [address] nieves 1 wk MARIA EUGENIA LEONARD MD Nov 15, 2016 17:05
[2016-11-15] MEDS ORDERED: SS SC (17:09)
[2016-11-15] MEDS ORDERED: PANT40SU PO (17:09)
== END 2016-11-15 18:10 | disposition home or self-care (01) | DRG 440 ==
LOC: E/R 13:54 → MS1 11-08 00:42
PROVIDERS: ADMIT Internal Medicine Nephrology; ATTEND Internal Medicine Nephrology
PROC: 0F798DZ Dilation of Common Bile Duct with Intraluminal Device, Via Natural or Artificial Opening Endoscopic (ICD-10-PCS; 2016-11-14)
PROC: BF11YZZ Fluoroscopy of Biliary and Pancreatic Ducts using Other Contrast (ICD-10-PCS; 2016-11-14)
PROC: 0F7D8DZ Dilation of Pancreatic Duct with Intraluminal Device, Via Natural or Artificial Opening Endoscopic (ICD-10-PCS; principal; 2016-11-14 12:30)
DX: K85.90 Acute pancreatitis without necrosis or infection, unspecified (principal); E87.8 Other disorders of electrolyte and fluid balance, not elsewhere classified; K76.0 Fatty (change of) liver, not elsewhere classified; I10 Essential (primary) hypertension; E11.9 Type 2 diabetes mellitus without complications; E87.6 Hypokalemia; K43.9 Ventral hernia without obstruction or gangrene; Z90.49 Acquired absence of other specified parts of digestive tract
CPT/HCPCS: 36415; 71010; 74176; 74181; 80048; 80053; 81001; 81003; 82150; 82378; 82962; 83036; 83690; 84484; 85025; 86301; 93005; 96374; 96375; C2617; C9113; J0330; J0360; J0690; J1100; J1815; J2250; J2270; J2405; J3010; J3480; J7030; J7040; J7042; Q9967